=== PATIENT | male | born 1995 | race African-American/Black ===

== ENCOUNTER 2020-06-14 02:23 | Emergency (ER) ==
[2020-06-14] MEDS ORDERED: Acetaminophen 500 MG TAB ONE (03:00)
== END 2020-06-14 03:16 ==
LOC: ERS 02:23
DX: S09.90XA Unspecified injury of head, initial encounter (principal); R55 Syncope and collapse; R42 Dizziness and giddiness; W19.XXXA Unspecified fall, initial encounter
CPT/HCPCS: 93005

== ENCOUNTER 2022-10-14 12:27 | Inpatient (IN) | payer SELFPAY ==
[2022-10-14 13:21] VITALS: BMI 18.0
[2022-10-14] MEDS ORDERED: Calcium Carbonate 500 MG ChewTAB PO PRN (13:29)
[2022-10-14] MEDS ORDERED: Senokot S 8.6-50 MG TAB PO PRN (13:29)
[2022-10-14] MEDS ORDERED: Ondansetron PF 4 MG/2 ML Vial IVP PRN (13:29)
[2022-10-14] MEDS ORDERED: Lorazepam 1 MG TAB PO PRN (13:43)
[2022-10-14] MEDS ORDERED: Electrolyte Replacement Protocol 1 EACH FS SCH (13:45)
[2022-10-14 14:02] LABS: #Monocytes 0.4 thou/uL (0.11-0.59); #Neutrophils 7.3 thou/uL (1.40-6.50); %Basophils 0.2 % (0.0-1.0); %Lymphocytes 7.5 % (21.0-51.0); %Monocytes 4.5 % (0.0-10.0); %Neutrophils 87.4 % (42.0-75.0); Hematocrit 41.7 % (42.0-52.0); Mean Corpuscular HGB CONC 33.6 g/dL (32.0-36.0); Mean Corpuscular Hemoglobin 28.7 pg (27.0-31.0); Mean Corpuscular Volume 85.6 fl (78.0-98.0); Mean Platelet Volume 10.6 fL (7.4-10.4); Platelet Count 167 10x3/uL (130-400); Red Blood Cell (RBC) Count 4.87 mill/uL (4.70-6.10); White Blood Cell (WBC) Count 8.4 10x3/uL (4.8-10.8)
[2022-10-14] MEDS: Lactated Ringer's 1,000 ML IV SCH ×3 (14:25→23:10)
[2022-10-14 14:27] LABS: ALT (SGPT) 42 U/L (8-55); AST (SGOT) 94 U/L (5-34); Albumin 4.7 g/dL (3.5-5.0); Alkaline Phosphatase 120 U/L (40-110); Anion Gap 24 mmol/L (10-20); BUN (Urea Nitrogen) 4 mg/dL (8.9-20.6); Bilirubin, Total 0.4 mg/dL (0.2-1.2); Calc. Creatinine Clearance 80 mL/min (70-130); Carbon Dioxide 14 mmol/L (22-29); Chloride 107 mmol/L (98-107); Estimated GFR 115; Globulin 3.4 g/dL (2.4-3.5); Glucose 91 mg/dL (70-105); Potassium 4.9 mmol/L (3.5-5.1); Protein, Total 8.1 g/dL (6.0-8.3); Sodium 140 mmol/L (136-145)
[2022-10-14 14:42] LABS: Lipase 1226 U/L (8-78)
[2022-10-14] MEDS ORDERED: Thiamine 100 MG TAB PO SCH (15:00)
[2022-10-14] MEDS ORDERED: levETIRAcetam 500 MG TAB PO SCH (15:00)
[2022-10-14] MEDS ORDERED: Electrolyte Replacement Protocol FS PRN (15:15)
[2022-10-14] MEDS: Morphine 2 MG/ML VIAL SLOW IVP PRN ×2 (16:07→20:17)
[2022-10-14] MEDS: Nicotine 14 MG PATCH TD SCH (16:11)
[2022-10-14 18:36] LABS: Anion Gap 22 mmol/L (10-20); BUN (Urea Nitrogen) Less than 4 mg/dL (8.9-20.6); Calc. Creatinine Clearance 85 mL/min (70-130); Carbon Dioxide 15 mmol/L (22-29); Chloride 105 mmol/L (98-107); Estimated GFR 121; Glucose 96 mg/dL (70-105); Potassium 4.6 mmol/L (3.5-5.1); Sodium 137 mmol/L (136-145)
[2022-10-14] MEDS: Acetaminophen 325 MG TAB PO PRN (19:29)
[2022-10-14] MEDS: Famotidine/PF 20 mg/2ml Vial SLOW IVP SCH (20:16)
[2022-10-14] MEDS: levETIRAcetam 500 MG TAB PO SCH ×2 (20:19→23:10)
[2022-10-15] MEDS: Lactated Ringer's 1,000 ML IV SCH ×5 (04:17→22:11)
[2022-10-15] MEDS: Morphine 2 MG/ML VIAL SLOW IVP PRN ×3 (04:20→12:57)
[2022-10-15 07:57] LABS: #Eosinphils 0.1 thou/uL (0.0-0.7); #Monocytes 0.4 thou/uL (0.11-0.59); #Neutrophils 4.1 thou/uL (1.40-6.50); %Basophils 0.4 % (0.0-1.0); %Lymphocytes 13.6 % (21.0-51.0); %Monocytes 7.4 % (0.0-10.0); %Neutrophils 76.2 % (42.0-75.0); Hematocrit 36.7 % (42.0-52.0); Hemoglobin 12.6 g/dL (14.0-18.0); Mean Corpuscular HGB CONC 34.3 g/dL (32.0-36.0); Mean Corpuscular Hemoglobin 28.4 pg (27.0-31.0); Mean Platelet Volume 11.3 fL (7.4-10.4); Platelet Count 127 10x3/uL (130-400); RBC Distribution Width 15.9 % (11.5-14.5); Red Blood Cell (RBC) Count 4.43 mill/uL (4.70-6.10); White Blood Cell (WBC) Count 5.4 10x3/uL (4.8-10.8)
[2022-10-15 08:06] LABS: Mean Corpuscular Volume 82.8 fl (78.0-98.0)
[2022-10-15 08:09] LABS: ALT (SGPT) 28 U/L (8-55); AST (SGOT) 54 U/L (5-34); Albumin 3.9 g/dL (3.5-5.0); Alkaline Phosphatase 92 U/L (40-110); Anion Gap 14 mmol/L (10-20); BUN (Urea Nitrogen) Less than 4 mg/dL (8.9-20.6); Bilirubin, Total 0.5 mg/dL (0.2-1.2); CRP (Inflammatory) 9.64 mg/dL (= or < 0.5); Calc. Creatinine Clearance 101 mL/min (70-130); Calcium 8.9 mg/dL (7.8-10.44); Carbon Dioxide 20 mmol/L (22-29); Chloride 104 mmol/L (98-107); Estimated GFR 127; Globulin 2.8 g/dL (2.4-3.5); Glucose 83 mg/dL (70-105); Lipase 676 U/L (8-78); Magnesium 1.8 mg/dL (1.6-2.6); Phosphorus 2.7 mg/dL (2.3-4.7); Potassium 3.4 mmol/L (3.5-5.1); Protein, Total 6.7 g/dL (6.0-8.3); Sodium 135 mmol/L (136-145)
[2022-10-15] MEDS: Multivitamin W/ Minerals 1 TAB PO SCH (08:21)
[2022-10-15] MEDS: levETIRAcetam 500 MG TAB PO SCH ×2 (08:21→19:49)
[2022-10-15] MEDS: Thiamine 100 MG TAB PO SCH (08:22)
[2022-10-15] MEDS: Folic Acid 1 MG TAB PO SCH (08:22)
[2022-10-15] MEDS: Famotidine/PF 20 mg/2ml Vial SLOW IVP SCH ×2 (08:22→19:49)
[2022-10-15] MEDS ORDERED: Magnesium 2 GM/50 ML(in water) 2 GM in Premix Bag 1 BAG IVPB SCH (08:30)
[2022-10-15] MEDS ORDERED: Potassium Chloride 20 MEQ TAB PO SCH ×2 (08:45→09:30)
[2022-10-15] MEDS ORDERED: Lorazepam 1 MG TAB PO PRN (13:43)
[2022-10-15] MEDS: Nicotine 14 MG PATCH TD SCH (13:46)
[2022-10-15] MEDS ORDERED: Morphine 2 MG/ML VIAL SLOW IVP PRN (16:59)
[2022-10-16] MEDS: Lactated Ringer's 1,000 ML IV SCH (05:22)
[2022-10-16] MEDS: Multivitamin W/ Minerals 1 TAB PO SCH (08:22)
[2022-10-16] MEDS: levETIRAcetam 500 MG TAB PO SCH ×2 (08:22→20:02)
[2022-10-16] MEDS: Famotidine/PF 20 mg/2ml Vial SLOW IVP SCH ×2 (08:22→20:03)
[2022-10-16] MEDS: Thiamine 100 MG TAB PO SCH (08:22)
[2022-10-16] MEDS: Folic Acid 1 MG TAB PO SCH (08:22)
[2022-10-16 11:07] LABS: ALT (SGPT) 29 U/L (8-55); AST (SGOT) 58 U/L (5-34); Albumin 4.4 g/dL (3.5-5.0); Alkaline Phosphatase 98 U/L (40-110); Anion Gap 18 mmol/L (10-20); BUN (Urea Nitrogen) Less than 4 mg/dL (8.9-20.6); Bilirubin, Total 0.6 mg/dL (0.2-1.2); Calc. Creatinine Clearance 115 mL/min (70-130); Calcium 9.9 mg/dL (7.8-10.44); Carbon Dioxide 20 mmol/L (22-29); Chloride 100 mmol/L (98-107); Estimated GFR 132; Globulin 3.6 g/dL (2.4-3.5); Glucose 82 mg/dL (70-105); Lipase 245 U/L (8-78); Magnesium 1.9 mg/dL (1.6-2.6); Potassium 3.6 mmol/L (3.5-5.1); Sodium 134 mmol/L (136-145)
[2022-10-16] MEDS ORDERED: Lorazepam 1 MG TAB PO PRN (13:43)
[2022-10-16] MEDS ORDERED: Magnesium 2 GM/50 ML(in water) 2 GM in Premix Bag 1 BAG IVPB SCH (14:00)
[2022-10-16] MEDS ORDERED: Potassium Chloride 20 MEQ TAB PO SCH (14:15)
[2022-10-16] MEDS: Nicotine 14 MG PATCH TD SCH (14:51)
[2022-10-16] MEDS: Sodium Chloride 0.9% 1,000 ML IV SCH ×3 (14:51→23:51)
[2022-10-16] MEDS: Sodium Bicarbonate Tab 325 MG TAB PO SCH ×2 (14:51→20:02)
[2022-10-16] MEDS: Acetaminophen 325 MG TAB PO PRN (23:54)
[2022-10-17 01:12] VITALS: TEMP 97.9
[2022-10-17 07:07] LABS: Anion Gap 8 mmol/L (10-20); BUN (Urea Nitrogen) Less than 4 mg/dL (8.9-20.6); Calc. Creatinine Clearance 125 mL/min (70-130); Calcium 9.1 mg/dL (7.8-10.44); Carbon Dioxide 26 mmol/L (22-29); Chloride 108 mmol/L (98-107); Estimated GFR 136; Glucose 119 mg/dL (70-105); Magnesium 2.1 mg/dL (1.6-2.6); Potassium 3.4 mmol/L (3.5-5.1); Sodium 139 mmol/L (136-145)
[2022-10-17] MEDS: Famotidine/PF 20 mg/2ml Vial SLOW IVP SCH (07:59)
[2022-10-17] MEDS: Folic Acid 1 MG TAB PO SCH (07:59)
[2022-10-17] MEDS: levETIRAcetam 500 MG TAB PO SCH (07:59)
[2022-10-17] MEDS: Thiamine 100 MG TAB PO SCH (08:00)
[2022-10-17] MEDS: Sodium Bicarbonate Tab 325 MG TAB PO SCH ×2 (08:00→15:09)
[2022-10-17] MEDS: Multivitamin W/ Minerals 1 TAB PO SCH (08:00)
[2022-10-17] MEDS ORDERED: Potassium Chloride 20 MEQ TAB PO SCH (10:00)
[2022-10-17] MEDS ORDERED: Lorazepam 0.5 MG TAB PO PRN (13:43)
[2022-10-17] MEDS: Sodium Chloride 0.9% 1,000 ML IV SCH (14:04)
[2022-10-17] MEDS: Nicotine 14 MG PATCH TD SCH (14:04)
[2022-10-17 16:57] VITALS: BP 151/106
== END 2022-10-17 17:06 | disposition home or self-care (01) | DRG 439 ==
LOC: T4-B 12:27
PROVIDERS: ADMIT Internal Medicine; ATTEND Internal Medicine
DX: K85.20 Alcohol induced acute pancreatitis without necrosis or infection (principal); E87.20 Acidosis, unspecified; R18.8 Other ascites; F10.10 Alcohol abuse, uncomplicated; K76.0 Fatty (change of) liver, not elsewhere classified; Z79.899 Other long term (current) drug therapy
CPT/HCPCS: 36415; 36416; 80048; 80053; 82247; 82248; 82310; 83690; 83735; 84100; 85025; 86140; J2272; J3475; J7050; J7120; S0028